=== PATIENT | male | born 1965 | race Caucasian/White ===

== ENCOUNTER 2017-02-28 22:11 | Emergency (ER) | payer OTHER ==
[2017-03-01 00:30] VITALS: BP 153/97
== END 2017-03-01 00:30 | disposition home or self-care (01) ==
LOC: ED 22:11
DX: S02.92XA Unspecified fracture of facial bones, initial encounter for closed fracture (principal); S01.112A Laceration without foreign body of left eyelid and periocular area, initial encounter; Y08.89XA Assault by other specified means, initial encounter; Y93.89 Activity, other specified; Y92.89 Other specified places as the place of occurrence of the external cause; Y99.8 Other external cause status; E11.9 Type 2 diabetes mellitus without complications; Z79.4 Long term (current) use of insulin
CPT/HCPCS: J2001; J2270; J7030; Q0162